=== PATIENT | male | born 1990 | race Caucasian/White ===

== ENCOUNTER 2018-04-02 18:24 | Emergency (ER) | payer BC ==
[~2018-04-02] VITALS: Ht 193 cm; Wt 104.3 kg
--- NOTE | 2018-04-02 18:59 | NUR ---
Bib friend c/o left ankle pain and swelling, stepped into uneven surface. Denies ko,head trauma/injury. Awaiting for MD brizuela. Safety and comfort measures provided. Will monitor.
[2018-04-02] MEDS ORDERED: IBUPROFEN 600 MG TABLET PO ONE ×2 (19:00→19:03)
[2018-04-02] MEDS ORDERED: IBUPROFEN 400 MG TABLET PO ONE (19:30)
[2018-04-02 20:20] VITALS: BP 129/74
--- NOTE | 2018-04-02 20:21 | NUR ---
Patient discharged to home in stable condition. Written and verbal after care instructions given. Patient verbalizes understanding of instruction. PT ambulatory with a steady gait VITAL SIGNS WITHIN NORMAL LIMITS.
== END 2018-04-02 20:22 | disposition home or self-care (01) ==
LOC: ER 18:37
DX: S93.492A Sprain of other ligament of left ankle, initial encounter (principal); W22.8XXA Striking against or struck by other objects, initial encounter; Y93.89 Activity, other specified; Y92.89 Other specified places as the place of occurrence of the external cause; Y99.8 Other external cause status
CPT/HCPCS: 73610; 99284; A4606; Z7610